=== PATIENT | male | born 1935 | race Caucasian/White ===

== ENCOUNTER 2016-09-17 23:37 | Emergency (ER) | payer MEDICARE, OTHER ==
[~2016-09-17] VITALS: Ht 172.7 cm; Wt 88.6 kg
[~2016-09-17 23:37] MED LIST: AMLO2.5T78 PO; ASPI-664 PO; CLOP75TA28 PO; DUTA0.5C PO; ERYT250T55 PO; ESOM20CA32 PO; FER325 PO; FINA5TAB4 PO; LOSA1TAB19 PO; METO25TA7 PO; SMV40T PO; ZOLP10TA5 PO; ZOLP5TAB7 PO
[2016-09-17 23:51] VITALS: Ht 172.7 cm; Wt 88.6 kg
== END 2016-09-18 01:16 | disposition left against medical advice (07) ==
LOC: E/R 23:37
DX: Z53.21 Procedure and treatment not carried out due to patient leaving prior to being seen by health care provider (principal)

== ENCOUNTER 2017-03-28 12:20 | Emergency (ER) | payer MEDICARE, OTHER ==
[~2017-03-28] VITALS: Ht 172.7 cm; Wt 91.3 kg
[~2017-03-28 12:20] MED LIST changes: +METO-335 PO; -METO25TA7 PO; +SIMV40TA3 PO; -SMV40T PO
[2017-03-28 12:28] VITALS: Ht 172.7 cm; Wt 91.3 kg
[2017-03-28] MEDS ORDERED: FAMOTIDINE 20 MG TAB PO STA (13:59)
--- NOTE | 2017-03-28 14:24 | ERD ---
ER Documentation Chief Complaint Chief Complaint non-radiating epigastric pain x 1 week, history 0f stent placement, +n/v HPI Patient is a 81-year-old male who presents with gradual onset, constant, moderate burning epigastric pain for 1 week. He states that the pain waxes and wanes in intensity, and he has about a dozen episodes per day of more severe pain lasting 5-10 minutes. Since last night, he has had constant more severe pain. He reports nausea, denies vomiting. He denies back pain. He denies constipation or diarrhea. He took Nexium without relief. He states that food does not exacerbate or alleviate his symptoms. He does not have exertional symptoms. ROS All systems reviewed and are negative except as per history of present illness. Medications Home Meds Active Scripts Polyethylene Glycol* (Miralax*) 17 Gm Powd.pack, 17 GM PO DAILY, #5 Prov:MARCELO BRAXTON MD 03/28/17 Pantoprazole* (Protonix*) 40 Mg Tablet.dr, 40 MG PO DAILY, #14 TAB Prov:MARCELO BRAXTON MD 03/28/17 Reported Medications Cyanocobalamin* (Vitamin B-12*) 1,000 Mcg Tablet.sa, 1000 MCG PO DAILY, TAB 03/28/17 Docusate Sodium* (Colace*) 100 Mg Capsule, 100 MG PO DAILY, #30 CAP 03/28/17 Pravastatin Sodium* (Pravastatin Sodium*) 10 Mg Tablet, 10 MG PO HS, TAB 03/28/17 Metformin Hcl* (Metformin Hcl*) 500 Mg Tablet, 500 MG PO WITH BREAKFAST, #30 TAB 03/28/17 Losartan Potassium* (Losartan Potassium*) 100 Mg Tablet, 100 MG PO DAILY, TAB 03/28/17 Amlodipine Besylate* (Norvasc*) 5 Mg Tablet, 5 MG PO DAILY, TAB 03/28/17 Ferrous Sulfate* (Ferrous Sulfate*) 325 Mg Tabec, 325 MG PO DAILY, TAB 02/12/16 Zolpidem Tartrate* (Zolpidem Tartrate*) 10 Mg Tablet, 10 MG PO QHS Y for INSOMNIA, #30 TAB 02/12/16 Clopidogrel Bisulfate (Clopidogrel) 75 Mg Tablet, 75 MG PO DAILY, #30 TAB 02/12/16 Finasteride* (Finasteride*) 5 Mg Tablet, 5 MG PO BI WEEKLY, TAB 02/12/16 Metoprolol Succinate* (Toprol XL*) 25 Mg Tab.sr.24h, 25 MG PO DAILY, #30 TAB 02/12/16 Erythromycin Stearate (Erythromycin Stearate) 250 Mg Tablet, 62.5 MG PO QHS, TAB 02/12/16 Aspirin* (Aspirin* (EC)) 81 Mg Tablet.dr, 81 MG PO 3 TIMES/WEEK, TAB 10/10/14 Discontinued Reported Medications Esomeprazole Magnesium (Nexium 24Hr) 22.3 Mg Capsule.dr, 22.3 MG PO BEFORE BREAKFAST, #30 CAP 02/12/16 Amlodipine Besylate* (Amlodipine Besylate*) 2.5 Mg Tablet, 2.5 MG PO DAILY, #30 TAB 02/12/16 Dutasteride* (Avodart*) 0.5 Mg Capsule, 0.5 MG PO TWICE/WEEK, CAP 10/10/14 Zolpidem Tartrate* (Zolpidem Tartrate*) 5 Mg Tablet, 5 MG PO HS Y, TAB 10/10/14 Losartan-Hydrochlorothiazide (Losartan-HCTZ) 50-12.5 Mg Tab, 1 TAB PO DAILY, TAB 10/10/14 Simvastatin (Simvastatin) 40 Mg Tablet, 40 MG PO HS, TAB 10/10/14 Allergies Allergies: Coded Allergies: No Known Allergy (Unverified , 03/28/17) PMhx/Soc Past medical history: Diabetes mellitus, hypertension, coronary artery disease Past surgical history: Coronary stents, prostate surgery Social history: Denies tobacco or alcohol History of Surgery: Yes (PROSTATE SX, LIVESTOCK COUNTER RLE 03/31, ING. HERNIA, NASAL SX) Anesthesia Reaction: No Hx Neurological Disorder: No Hx Respiratory Disorders: No Hx Cardiac Disorders: Yes (HTN,HLP, CAROTID DIS. , stent placement, bladder CA , DM2) Hx Psychiatric Problems: No Hx Miscellaneous Medical Probl: No Hx Alcohol Use: No Hx Substance Use: No Hx Tobacco Use: No Smoking Status: Former smoker FmHx Noncontributory Physical Exam Vitals Vital Signs Date Time Temp Pulse Resp B/P Pulse Ox O2 Delivery O2 Flow Rate FiO2 03/28/17 17:32 67 16 171/58 99 Room Air 03/28/17 16:32 71 16 180/62 97 Room Air 03/28/17 12:28 97.7 66 20 181/80 98 Physical Exam Const: Alert, no acute distress Head: Atraumatic Eyes: Normal Conjunctiva, No pallor, no icterus ENT: Normal External Ears, Nose and Mouth. Neck: Full range of motion..~ No meningismus. Resp: Clear to auscultation bilaterally, No wheezes, no rales Cardio: Regular rate and rhythm, no murmurs Abd: Soft, Mildly distended, tender in the right upper quadrant and epigastrium without rebound or guarding Skin: No petechiae or rashes Back: No midline or flank tenderness Ext: No cyanosis, or edema Neur: Awake and alert, Cranial nerves II through XII intact bilaterally, strength and sensation full in 4 extremities. Psych: Normal Mood and Affect Result Diagram: 03/28/17 1410 03/28/17 1410 Results 24 hrs Laboratory Tests Test 03/28/17 14:10 03/28/17 14:18 White Blood Count 10.310^3/ul Red Blood Count 3.8210^6/ul Hemoglobin 10.9g/dl Hematocrit 35.1% Mean Corpuscular Volume 91.9fl Mean Corpuscular Hemoglobin 28.5pg Mean Corpuscular Hemoglobin Concent 31.1g/dl Red Cell Distribution Width 15.1% Platelet Count 16881^3/UL Mean Platelet Volume 10.5fl Neutrophils % 76.8% Lymphocytes % 11.8% Monocytes % 10.2% Eosinophils % 0.7% Basophils % 0.3% Nucleated Red Blood Cells % 0.0/100WBC Neutrophils # 7.910^3/ul Lymphocytes # 1.210^3/ul Monocytes # 1.110^3/ul Eosinophils # 0.110^3/ul Basophils # 0.010^3/ul Nucleated Red Blood Cells # 0.010^3/ul Sodium Level 142mmol/L Potassium Level 4.5mmol/L Chloride Level 105mmol/L Carbon Dioxide Level 25mmol/L Anion Gap 17 Blood Urea Nitrogen 19mg/dl Creatinine 1.05mg/dl Glucose Level 120mg/dl Calcium Level 8.7mg/dl Total Bilirubin 0.3mg/dl Direct Bilirubin 0.00mg/dl Indirect Bilirubin 0.3mg/dl Aspartate Amino Transf (AST/SGOT) 17IU/L Alanine Aminotransferase (ALT/SGPT) 29IU/L Alkaline Phosphatase 70IU/L Troponin I < 0.012ng/ml Total Protein 7.4g/dl Albumin 4.4g/dl Globulin 3.00g/dl Albumin/Globulin Ratio 1.46 Lipase 102U/L Urine Color YELLOW Urine Clarity CLEAR Urine pH 5.0 Urine Specific [place] 1.020 Urine Ketones NEGATIVEmg/dL Urine Nitrite NEGATIVEmg/dL Urine Bilirubin NEGATIVEmg/dL Urine Urobilinogen NEGATIVEmg/dL Urine Leukocyte Esterase NEGATIVELeu/ul Urine Microscopic RBC 1/HPF Urine Microscopic WBC 1/HPF Urine Hemoglobin NEGATIVEmg/dL Urine Glucose NEGATIVEmg/dL Urine Total Protein 1+mg/dl Current Medications Medications (Trade) Dose Ordered Sig/Betsy Route PRN Reason Start Time Stop Time Status Last Admin Dose Admin Famotidine (Pepcid) 20 mg ONCE STAT PO 03/28/17 13:59 03/28/17 14:00 DC 03/28/17 14:23 IV Flush 10 ml 10 ml STK-MED ONCE .ROUTE 03/28/17 15:42 03/28/17 15:43 DC 03/28/17 16:00 Sodium Chloride (NS) 100 ml @ ud STK-MED ONCE .ROUTE 03/28/17 15:42 03/28/17 15:43 DC 03/28/17 16:00 Iodixanol (Visipaque Locm) 100 ml STK-MED ONCE .ROUTE 03/28/17 15:42 03/28/17 15:43 DC 03/28/17 16:00 Morphine Sulfate (morphine) 3 mg ONCE STAT IV 03/28/17 16:32 03/28/17 16:33 DC Morphine Sulfate (morphine) 3 mg ONCE STAT IV 03/28/17 16:31 03/28/17 16:33 DC 03/28/17 16:39 Ondansetron HCl (Zofran Inj) 4 mg ONCE STAT IV 03/28/17 16:35 03/28/17 16:36 DC 03/28/17 16:39 Ondansetron HCl (Zofran Inj) 4 mg STK-MED ONCE .ROUTE 03/28/17 16:36 03/28/17 16:37 DC Dicyclomine HCl (Bentyl) 10 mg ONCE ONCE PO 03/28/17 17:00 03/28/17 17:01 DC 03/28/17 16:59 Pantoprazole (Protonix Iv) 40 mg ONCE ONCE IV 03/28/17 17:00 03/28/17 17:01 DC 03/28/17 16:59 Procedures/MDM EKG read by me: Time 1234, rate 65 Rhythm: Normal sinus Cushing: Normal Intervals: Intraventricular conduction delay ST-T waves: no ischemic changes Ectopy: No Q-waves: No Impression: No evidence of ischemia or arrhythmia MDM: Patient is a 81-year-old male who presents to the ER with abdominal pain. He has tenderness in epigastrium. Ultrasound and CT are unremarkable as to the cause of his pain. EKG is nonischemic and troponin is not elevated in the setting of constant pain for several hours. On history, the pain does not sound concerning for coronary ischemia or aortic dissection. Patient was given medication for his pain and states that his pain was significantly improved on reassessment. He does have some residual pain. Patient has history of peptic ulcer disease and H. pylori. He has not had any dark stool. I will give him a two-week course of pantoprazole, and advised him to follow-up closely with his PMD for gastroenterology referral if his symptoms do not resolve. I advised him to return to the ER for recheck in 24 hours if he still continues to have significant pain. I did note that on the CT there appeared to be a lot of material in the patient's stomach despite the fact that he has not eaten since last night. There is no sign of bowel obstruction, but the patient may be having slow transit time causing his pain. Departure Diagnosis: Primary Impression: Abdominal pain Abdominal location: epigastric Qualified Code: R10.13 - Epigastric pain Condition: MARCELO Dorsey MD Mar 28, 2017 14:24
[2017-03-28 14:35] LABS: BASOPHILS % 0.3 % (0.0-2.0); EOSINOPHILS # 0.1 10^3/ul (0.0-0.5); EOSINOPHILS % 0.7 % (0.0-7.0); HEMATOCRIT 35.1 % (42.0-52.0); HEMOGLOBIN 10.9 g/dl (14.0-18.0); LYMPHOCYTES # 1.2 10^3/ul (0.8-2.9); LYMPHOCYTES % 11.8 % (15.0-51.0); MEAN CORPUSCULAR HEMOGLOBIN 28.5 pg (29.0-33.0); MEAN CORPUSCULAR HGB CONC 31.1 g/dl (32.0-37.0); MEAN CORPUSCULAR VOLUME 91.9 fl (82.0-101.0); MEAN PLATELET VOLUME 10.5 fl (7.4-10.4); MONOCYTE # 1.1 10^3/ul (0.3-0.9); MONOCYTES % 10.2 % (0.0-11.0); NEUTROPHIL # 7.9 10^3/ul (1.6-7.5); NEUTROPHILS % 76.8 % (39.0-77.0); PLATELET COUNT 272 10^3/UL (140-415); RED BLOOD COUNT 3.82 10^6/ul (4.70-6.10); RED CELL DISTRIBUTION WIDTH 15.1 % (11.5-14.5); WHITE BLOOD COUNT 10.3 10^3/ul (4.8-10.8)
--- NOTE | 2017-03-28 14:45 | RADRPT ---
PROCEDURE: XR Chest. CLINICAL INDICATION: Abdominal Pain TECHNIQUE: Single frontal view of the chest was obtained COMPARISON: None FINDINGS: The heart and mediastinum are within normal limits. The lungs are clear. There is no pleural effusion or pneumothorax. The osseous structures are unremarkable. IMPRESSION: 1. No acute cardiopulmonary disease. RPTAT:AAJJ Physician Jamila Date Time Electronically viewed and signed by Keshawn Meraz Physician on 03/28/2017 14:44 QL/
[2017-03-28] MEDS ORDERED: METF500T4 PO (14:53)
[2017-03-28] MEDS ORDERED: AMLO5TAB4 PO (14:53)
[2017-03-28] MEDS ORDERED: LOSA100T7 PO (14:53)
[2017-03-28] MEDS ORDERED: DOCU-144 PO (14:54)
[2017-03-28] MEDS ORDERED: CYAN100080 PO (14:54)
[2017-03-28] MEDS ORDERED: PRAV10TA43 PO (14:54)
[2017-03-28 14:56] LABS: ALANINE AMINOTRANSFERASE 29 IU/L (13-69); ALBUMIN 4.4 g/dl (3.3-4.9); ALBUMIN/GLOBULIN RATIO 1.46; ALKALINE PHOSPHATASE 70 IU/L (42-121); ANION GAP 17 (8-16); ASPARTATE AMINO TRANSFERASE 17 IU/L (15-46); BILIRUBIN,INDIRECT 0.3 mg/dl (0-1.1); BILIRUBIN,TOTAL 0.3 mg/dl (0.2-1.3); BLOOD UREA NITROGEN 19 mg/dl (7-20); CALCIUM 8.7 mg/dl (8.4-10.2); CARBON DIOXIDE 25 mmol/L (21-31); CHLORIDE 105 mmol/L (97-110); CREATININE 1.05 mg/dl (0.61-1.24); GLUCOSE 120 mg/dl (70-220); POTASSIUM 4.5 mmol/L (3.5-5.1); SODIUM 142 mmol/L (135-144); TOTAL PROTEIN 7.4 g/dl (6.1-8.1)
--- NOTE | 2017-03-28 15:01 | RADRPT ---
PROCEDURE: Right upper quadrant abdominal ultrasound. CLINICAL INDICATION: Abdominal pain TECHNIQUE: Govea scale and color doppler ultrasound images of the right upper quadrant of the abdom en. COMPARISON: None FINDINGS: Pancreas: Not adequately visualized due to overlying bowel gas. Liver: Morphology:Normal in size. Contour:Normal, no evidence of nodularity. Echogenicity: Increased Focal lesions:None. Main portal vein: Patent with hepatopetal flow. Biliary System: Gallbladder wall: Normal thickness. Gallstones: None. Intrahepatic bile ducts: Normal caliber. Common bile duct diameter (mm): 2.7 Kidneys: Right length (cm) : 10.9 Right cortical thickness: Normal. Echogenicity: Normal. Hydronephrosis: None. Renal calculi: None. Focal lesions: Benign-appearing cyst measuring 1.2 cm. Free fluid/ascites: None. Abdominal aorta: Normal caliber of the visualized segments. Other findings: None. IMPRESSION: Normal gallbladder without gallstones. Increased echogenicity of the liver parenchyma suggestive of hepatic steatosis. RPTAT: AADD .Lalo Nicholas MD, MD Date Time Electronically viewed and signed by .Lalo Nicholas MD, on 03/28/2017 15:01 .B/
[2017-03-28 15:09] LABS: TROPONIN-I < 0.012 ng/ml (0.00-0.12)
[2017-03-28 15:19] LABS: ADD UMIC YES; UR ASCORBIC ACID NEGATIVE (NEGATIVE); UR BILIRUBIN (Dip) NEGATIVE (NEGATIVE); UR BLOOD (Dip) NEGATIVE (NEGATIVE); UR CLARITY CLEAR (CLEAR); UR COLOR YELLOW (YELLOW); UR GLUCOSE (Dip) NEGATIVE (NEGATIVE); UR KETONES (Dip) NEGATIVE (NEGATIVE); UR LEUKOCYTE ESTERASE (Dip) NEGATIVE Leu/ul (NEGATIVE); UR NITRITE (Dip) NEGATIVE (NEGATIVE); UR RBC 1 /HPF (0-5); UR TOTAL PROTEIN (Dip) 1+ mg/dl (NEGATIVE); UR UROBILINOGEN (Dip) NEGATIVE (NEGATIVE)
[2017-03-28] MEDS ORDERED: SOD CHLORIDE 0.9% 100 ML ONE (15:42)
[2017-03-28] MEDS ORDERED: IODIXANOL LOCM 100 ML BTL ONE (15:42)
[2017-03-28] MEDS ORDERED: morphine 4 MG/ML VIAL IV STA ×2 (16:31→16:32)
[2017-03-28] MEDS ORDERED: ONDANSETRON 4 MG INJ IV STA (16:35)
[2017-03-28] MEDS ORDERED: ONDANSETRON 4 MG INJ ONE (16:36)
--- NOTE | 2017-03-28 16:36 | RADRPT ---
PROCEDURE: CT abdomen and pelvis with contrast. CLINICAL INDICATION: abdominal pain TECHNIQUE: CT scan of the abdomen and pelvis with contrast was performed on a multislice CT scanne r. Intravenous contrast infiltrated into soft tissues during exam. 3-D sagittal and coronal refo rmatted images were obtained from the axial source images. One or more of the following post reduction techniques were used: - Automated exposure control. - Adjustment of the mA and/or Kv according to patient's size. - Use of iterative reconstruction technique DLP 1023.80 mGycm. CTDI vol 18.51 mGy COMPARISON: None. FINDINGS: The lung bases are clear. Minimal contrast enhancement secondary to contrast extravasation during intravenous delivery. Evalua tion of abdominal organs and vessels is limited. The liver, spleen, adrenal glands, and pancreas are normal. Gallbladder well distended and contains echogenic layering material. Mild perinephric fashion bilaterally. Sub centimeter cystic lesions sharon aterally. Moderate aortoiliac atherosclerosis. No ectasia. There is no ascites or retroperitoneal adenopathy. No free air. There is no bowel obstruction. Small hiatal hernia. Diverticulosis. Appendix unremarkable. Small rig ht and moderate left fat containing inguinal hernias. The urinary bladder is within normal limits with suggestion of urachal diverticulum. No pelvic alvin s or pelvic lymphadenopathy seen. There is no free fluid. Degenerative changes of the osseous structures. RPTAT: AA IMPRESSION: Diverticulosis without evidence for diverticulitis. Small hiatal hernia. Mild perinephric fat stranding bilaterally, nonspecific, possibly secondary to medical renal disease . No nephrolithiasis or hydronephrosis. 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 Layering sludge in the gallbladder. Contrast leak versus extravasation during study. If numbness, pain or parasthesias of the limb conta ining IV is experienced, immediate emergency room visit with plastic surgery consult is recommended. Warm or cold compress may be applied. Physician Sri Date Time Electronically viewed and signed by Physician Sri on 03/28/2017 16:36 [place]/
[2017-03-28] MEDS ORDERED: DICYCLOMINE 10 MG CAP PO ONE (17:00)
[2017-03-28] MEDS ORDERED: PANTOPRAZOLE 40 MG INJ IV ONE (17:00)
[2017-03-28] MEDS ORDERED: PANT40TA3 PO (17:20)
[2017-03-28] MEDS ORDERED: POLY17PO6 PO (17:20)
[2017-03-28 17:32] VITALS: BP 171/58; PULSE 67; RESP 16
== END 2017-03-28 17:55 | disposition home or self-care (01) ==
LOC: E/R 12:20
DX: R10.13 Epigastric pain (principal); E11.9 Type 2 diabetes mellitus without complications; I10 Essential (primary) hypertension; I25.10 Atherosclerotic heart disease of native coronary artery without angina pectoris; Z79.82 Long term (current) use of aspirin; Z79.84 Long term (current) use of oral hypoglycemic drugs; Z85.51 Personal history of malignant neoplasm of bladder; Z98.61 Coronary angioplasty status; Z87.891 Personal history of nicotine dependence
CPT/HCPCS: 36415; 71010; 74177; 76705; 80053; 81001; 83690; 84484; 85025; 93005; 96374; 96375; 99285; C9113; J2270; J2405; Q9967

== ENCOUNTER 2017-06-20 00:36 | Emergency (ER) | END 2017-06-20 11:10 | disposition home or self-care (01) ==

== ENCOUNTER 2017-06-22 04:00 | Inpatient (IN) | END 2017-06-24 13:05 | disposition home or self-care (01) | DRG 444 ==

== ENCOUNTER 2017-07-14 13:58 | Outpatient (CLI) | END 2017-07-14 15:32 | disposition home or self-care (01) ==

== ENCOUNTER → 2017-07-19 | Outpatient (CLI) | END | disposition home or self-care (01) ==

== ENCOUNTER 2017-07-21 15:43 | Outpatient (CLI) | END 2017-07-21 15:54 | disposition home or self-care (01) ==

== ENCOUNTER 2018-02-23 06:40 | Day surgery (SDC) | END 2018-02-23 18:10 | disposition home or self-care (01) ==

== ENCOUNTER 2018-04-03 06:26 | Emergency (ER) | END 2018-04-03 08:30 | disposition home or self-care (01) ==